=== PATIENT | male | born 1990 | race Caucasian/White ===

== ENCOUNTER 2017-03-19 12:31 | Inpatient (IN) | payer MEDICAID, OTHER ==
[~2017-03-19] VITALS: Ht 175.3 cm; Wt 68.9 kg
[2017-03-19 12:35] VITALS: BP 145/104; PULSE 72; RESP 14; TEMP 98.4; O2SAT 99
[2017-03-19] MEDS ORDERED: OLAN5TAB PO (12:43)
[2017-03-19] MEDS ORDERED: CLON0.5T PO (12:43)
[2017-03-19] MEDS ORDERED: AMLO2.5T PO (12:43)
[2017-03-19] MEDS ORDERED: LURA20TA PO (12:43)
--- NOTE | 2017-03-19 12:55 | PD ---
HPI Chief Complaint: Psychiatric Symptoms Time Seen by Provider: 12:38 Travel History International Travel<30 days: No Contact w/Intl Traveler<30days: No Traveled to known affect area: No History of Present Illness HPI The patient is a 26-year-old male who presents emergency department with his parents for psychiatric evaluation. The patient has a history of anxiety and bipolar affective disorder, saw a counselor at the ages 18. The patient was then seen by psychiatry in [place] 3 weeks ago and referred to [facility]. The patient apparently did not meet inpatient criteria and was discharged home. The patient saw his primary physician who prescribed olanzapine, low to do, and Klonopin. The patient has intermittent thoughts of suicide secondary to increasing anxiety. The patient states he awakened every day and is afraid that he is offended somebody and is nervous and anxious about things she normally is not anxious about. He also notes a history of bipolar affective disorder and feels like that is not being controlled with his current medications. He is requesting psychiatry evaluation. He smokes marijuana intermittently, had a few beers last night, but denies chronic daily excessive alcohol ingestion. PFSH Past Medical History Bipolar Disorder: Yes Anxiety: Yes Cardiovascular Problems: Yes (HTN) Hypertension: Yes Past Surgical History Narrative Surgical Noncontributory Social History Alcohol Use: Yes (beers) Tobacco Use: No Substance Use: Yes ("pot") Allergies-Medications (Allergen,Severity, Reaction): Coded Allergies: No Known Allergies (Unverified , 03/19/17) Reported Meds & Prescriptions Reported Meds & Active Scripts Active Reported Amlodipine (Amlodipine Besylate) 2.5 Mg Tab 2.5 Mg PO DAILY Latuda (Lurasidone) 20 Mg Tab 20 Mg PO DAILY Clonazepam 0.5 Mg Tab 0.5 Mg PO BID PRN Olanzapine 5 Mg Tab 5 Mg PO HS Review of Systems Except as stated in HPI: all other systems reviewed are Neg Cardiovascular: No: Chest Pain or Discomfort Respiratory: No: Shortness of Breath Gastrointestinal: No: Nausea, Vomiting, Abdominal Pain Psychiatric: Positive: Anxiety, Suicidal Ideations, Mood Disorder, No: Homicidal Ideation Physical Exam Narrative GENERAL: Awake, alert, pleasant 26-year-old male who appears his stated age and is in no acute respiratory distress. He does appear mildly anxious. SKIN: Focused skin assessment warm/dry. HEAD: Atraumatic. Normocephalic. EYES: Pupils equal and round. No scleral icterus. No injection or drainage. ENT: No nasal bleeding or discharge. Mucous membranes pink and moist. NECK: Trachea midline. No JVD. CARDIOVASCULAR: Regular rate and rhythm. No murmur appreciated. RESPIRATORY: No accessory muscle use. Clear to auscultation. Breath sounds equal bilaterally. GASTROINTESTINAL: Abdomen soft, non-tender, nondistended. No rebound tenderness. MUSCULOSKELETAL: No obvious deformities. No clubbing. No cyanosis. No edema. NEUROLOGICAL: Awake and alert. No obvious cranial nerve deficits. Motor grossly within normal limits. Normal speech. Nonfocal. Oriented 4. PSYCHIATRIC: Anxious appearing. Insight and judgment appear normal. Data Data Last Documented VS Vital Signs Date Time Temp Pulse Resp B/P Pulse Ox O2 Delivery O2 Flow Rate FiO2 03/19/17 12:35 98.4 72 14 145/104 99 Orders Complete Blood Count With Diff (03/19/17 12:52) Comprehensive Metabolic Panel (03/19/17 12:52) Thyroid Stimulating Hormone (03/19/17 12:52) Psych Screen (03/19/17 12:52) Drug Screen, Random Urine (03/19/17 12:52) Alcohol (Ethanol) (03/19/17 12:52) Diet Regular Basic (03/19/17 Dinner) Clonazepam (Klonopin) (03/19/17 15:00) Labs Laboratory Tests Test 03/19/17 13:00 White Blood Count 7.4 TH/MM3 Red Blood Count 5.40 MIL/MM3 Hemoglobin 15.9 GM/DL Hematocrit 46.7 % Mean Corpuscular Volume 86.5 FL Mean Corpuscular Hemoglobin 29.5 PG Mean Corpuscular Hemoglobin 34.0 % Concent Red Cell Distribution Width 12.7 % Platelet Count 227 TH/MM3 Mean Platelet Volume 8.2 FL Neutrophils (%) (Auto) 68.0 % Lymphocytes (%) (Auto) 18.7 % Monocytes (%) (Auto) 9.0 % Eosinophils (%) (Auto) 3.6 % Basophils (%) (Auto) 0.7 % Neutrophils # (Auto) 5.0 TH/MM3 Lymphocytes # (Auto) 1.4 TH/MM3 Monocytes # (Auto) 0.7 TH/MM3 Eosinophils # (Auto) 0.3 TH/MM3 Basophils # (Auto) 0.0 TH/MM3 CBC Comment DIFF FINAL Differential Comment Sodium Level 137 MEQ/L Potassium Level 4.0 MEQ/L Chloride Level 103 MEQ/L Carbon Dioxide Level 26.6 MEQ/L Anion Gap 7 MEQ/L Blood Urea Nitrogen 10 MG/DL Creatinine 0.73 MG/DL Estimat Glomerular Filtration 132 ML/MIN Rate Random Glucose 92 MG/DL Calcium Level 8.4 MG/DL Total Bilirubin 0.6 MG/DL Aspartate Amino Transf 49 U/L (AST/SGOT) Alanine Aminotransferase 43 U/L (ALT/SGPT) Alkaline Phosphatase 85 U/L Total Protein 7.8 GM/DL Albumin 3.9 GM/DL Thyroid Stimulating Hormone 0.770 uIU/ML 3rd Gen Urine Opiates Screen NEG Urine Barbiturates Screen NEG Urine Amphetamines Screen NEG Urine Benzodiazepines Screen NEG Urine Cocaine Screen NEG Urine Cannabinoids Screen POS Ethyl Alcohol Level 46 MG/DL MDM Medical Decision Making Medical Screen Exam Complete: Yes Emergency Medical Condition: Yes Medical Record Reviewed: Yes Interpretation(s) Laboratory Tests Test 03/19/17 13:00 White Blood Count 7.4 TH/MM3 Red Blood Count 5.40 MIL/MM3 Hemoglobin 15.9 GM/DL Hematocrit 46.7 % Mean Corpuscular Volume 86.5 FL Mean Corpuscular Hemoglobin 29.5 PG Mean Corpuscular Hemoglobin 34.0 % Concent Red Cell Distribution Width 12.7 % Platelet Count 227 TH/MM3 Mean Platelet Volume 8.2 FL Neutrophils (%) (Auto) 68.0 % Lymphocytes (%) (Auto) 18.7 % Monocytes (%) (Auto) 9.0 % Eosinophils (%) (Auto) 3.6 % Basophils (%) (Auto) 0.7 % Neutrophils # (Auto) 5.0 TH/MM3 Lymphocytes # (Auto) 1.4 TH/MM3 Monocytes # (Auto) 0.7 TH/MM3 Eosinophils # (Auto) 0.3 TH/MM3 Basophils # (Auto) 0.0 TH/MM3 CBC Comment DIFF FINAL Differential Comment Sodium Level 137 MEQ/L Potassium Level 4.0 MEQ/L Chloride Level 103 MEQ/L Carbon Dioxide Level 26.6 MEQ/L Anion Gap 7 MEQ/L Blood Urea Nitrogen 10 MG/DL Creatinine 0.73 MG/DL Estimat Glomerular Filtration 132 ML/MIN Rate Random Glucose 92 MG/DL Calcium Level 8.4 MG/DL Total Bilirubin 0.6 MG/DL Aspartate Amino Transf 49 U/L (AST/SGOT) Alanine Aminotransferase 43 U/L (ALT/SGPT) Alkaline Phosphatase 85 U/L Total Protein 7.8 GM/DL Albumin 3.9 GM/DL Thyroid Stimulating Hormone 0.770 uIU/ML 3rd Gen Urine Opiates Screen NEG Urine Barbiturates Screen NEG Urine Amphetamines Screen NEG Urine Benzodiazepines Screen NEG Urine Cocaine Screen NEG Urine Cannabinoids Screen POS Ethyl Alcohol Level 46 MG/DL Differential Diagnosis Differential diagnosis includes anxiety, depressive disorder, bipolar affective disorder, schizoaffective disorder, ADHD, OCD. Narrative Course Labs were drawn and sent. Psychiatric evaluation was ordered. Alcohol was mildly elevated, tox screen positive for cannabinoids, TSH and CMP are unremarkable. Patient is medically clear to be evaluated by psychiatry. Disposition as per psych. Psychiatry has evaluated the patient and will admit the patient to the psychiatric unit. Diagnosis Primary Impression: Bipolar affective disorder Qualified Code: F31.61 - Bipolar disorder, current episode mixed, mild Additional Impression: Anxiety Admitting Information Admitting Physician Requests: Admit Condition: Stable Hitesh Tsai MD Mar 19, 2017 12:55
[2017-03-19 13:11] LABS: BASOPHIL % 0.7 % (0.0-2.0); EOSINOPHIL # 0.3 TH/MM3 (0-0.4); EOSINOPHIL % 3.6 % (0.0-4.0); HEMATOCRIT 46.7 % (39.0-51.0); HEMO FLAGS DIFF FINAL; LYMPH % 18.7 % (9.0-44.0); LYMPHOCYTE # 1.4 TH/MM3 (1.0-4.8); MEAN CELL VOLUME 86.5 FL (80.0-100.0); MEAN CORPUSCULAR HEMOGLOBIN 29.5 PG (27.0-34.0); PLATELET COUNT 227 TH/MM3 (150-450); RED CELL DISTRIBUTION WIDTH 12.7 % (11.6-17.2); WHITE BLOOD COUNT 7.4 TH/MM3 (4.0-11.0)
[2017-03-19 13:22] LABS: AMPHETAMINE, URINE NEG (NEG); BARBITURATES, URINE NEG (NEG); COCAINE, URINE NEG (NEG)
[2017-03-19 13:35] LABS: ALT (GPT) 43 U/L (12-78); ANION GAP 7 MEQ/L (5-15); AST (GOT) 49 U/L (15-37); BICARBONATE 26.6 MEQ/L (21.0-32.0); BLOOD UREA NITROGEN 10 MG/DL (7-18); CHLORIDE 103 MEQ/L (98-107); GLOMERULAR FILTRATION RATE 132 ML/MIN (>89); SODIUM (NA) 137 MEQ/L (136-145)
[2017-03-19 13:44] LABS: ALKALINE PHOSPHATASE 85 U/L (45-117); TOTAL BILIRUBIN ADULT 0.6 MG/DL (0.2-1.0)
[2017-03-19] MEDS ORDERED: clonazePAM 1 MG TAB PO ONE (15:00)
[2017-03-19 15:54] VITALS: BP 127/88; PULSE 70; RESP 18; O2SAT 98
[2017-03-19] MEDS ORDERED: LORazepam 0.5 MG TAB PO PRN (16:00)
[2017-03-19] MEDS ORDERED: MAGNESIUM HYDROXIDE SUSP 30 ML CUP PO PRN (16:00)
[2017-03-19] MEDS ORDERED: ACETAMINOPHEN 325 MG TAB PO PRN (16:00)
[2017-03-19] MEDS ORDERED: ALUMINUM/MAGNESIUM/SIMETH 30 ML CUP PO PRN (16:00)
[2017-03-19] MEDS ORDERED: LORazepam 1 MG TAB PO PRN (16:00)
[2017-03-19] MEDS ORDERED: LORazepam 2 MG/ML VIAL IM PRN ×2 (16:00)
--- NOTE | 2017-03-19 16:15 | HHI.HP ---
Provisional Diagnosis Admission Date [place] I. Bipolar, depressed Certification of Person's Competence To Provide Express and Informed Consent I have personally examined Eddie Cheema , a person being served at [facility] on, Mar 19, 2017 16:01. Express and informed consent means consent voluntarily given in writing, by a competent person, after sufficient explanation and disclosure of the subject matter involved to enable the person to make a knowing and willful decision without any element of force, fraud, deceit, duress, or other form of constraint or coercion. This person is 18 years of age or older, is not now known to be incompetent to consent to treatment with a guardian advocate, and does not have a health care surrogate or proxy currently making medical treatment decisions. I have found this person to be one of the following: [X] Competent to provide express and informed consent, as defined above, for voluntary admission to this facility and is competent to provide express and informed consent for treatment. He/she has the consistent capacity to make well reasoned, willful, and knowing decisions concerning his or her medical or mental health treatment. The person fully and consistently understands the purpose of the admission for examination/placement and is fully capable of personally exercising all rights assured [place] Incompetent to provide express and informed consent to voluntary admission, and this is incompetent to provide express and informed consent to treatment. The person must be transferred to involuntary status and a petition for a guardian advocate filed with the Circuit Court. [] Refusing to provide express and informed consent to voluntary admission but is competent to provide express and informed consent for treatment. The person must be discharged or transferred to involuntary status. Form shall be completed within 24 hours of a person's arrival at the receiving facility and filed in the clinical record of each person: 1. Admitted on a voluntary basis 2. Permitted to provide express and informed consent to his/her own treatment 3. Allowed to transfer from involuntary to voluntary status 4. Prior to permitting a person to consent to his or her own treatment after having been previously found incompetent to consent to treatment. History of Present Illness Capacity: Has Capacity HPI 26-year-old male being admitted to the psychiatric [facility] for the first time due to symptoms of mood disorder, anxiety and suicidal ideation. Patient, mother and stepfather were at the bedside and all of them interviewed. The patient has approximately a 6 to a month history of increasing symptoms of depression and anxiety. At this point the patient describes depressed mood, anhedonia, social withdrawal, feelings of guilt, feelings of hopelessness and helplessness , suicidal ideation and great anxiety. He is not sleeping at night. He is unable to concentrate he feels he has offended people who he knows and he has somehow been disappointing in everything he does. He does not have an exact plan to kill himself at this time he has been prescribed medications and states he could overdose. He has been drinking alcohol and smoking marijuana but both he and his mother claim he does this to self medicate his anxiety. He has been seen by a private practitioner on [place] and at the [facility]. He has been prescribed Latuda but has not been taking it with meals. He has been prescribed Klonopin and he has been prescribed olanzapine. At this point, he is unable to contract for safety. Both the patient and his mother wanted him admitted. Review of Systems Except as stated in HPI: all other systems reviewed are Neg Past Psych History Psychological trauma history Although he has been seen twice and, he has had no consistent treatment. Violence risk - others (6 mos) Minimal Violence risk - self (6 mos) Moderate to severe Substance Abuse History Drugs/Alcohol past 12 months Smoking marijuana and drinking alcohol daily for the last several months Past Family Social History Coded Allergies: No Known Allergies (Unverified , 03/19/17) Reported Medications Amlodipine 2.5 Mg Tab2.5 Mg PO DAILY #30 TAB Ref 0 03/19/17 Lurasidone (Latuda)20 Mg Tab20 Mg PO DAILY #30 TAB Ref 0 03/19/17 Clonazepam 0.5 Mg Tab0.5 Mg PO BID PRN #60 TAB Ref 0 03/19/17 Olanzapine 5 Mg Tab5 Mg PO HS #30 TAB Ref 0 03/19/17 Current Medications Medications (Trade) Dose Ordered Sig/Prisca Route Start Time Stop Time Status Last Admin (Ativan) 1 mg Q6H PRN PO 03/19/17 16:00 UNV (Ativan Inj) 1 mg Q6H PRN IM 03/19/17 16:00 UNV (Ativan) 0.5 mg Q12H PRN PO 03/19/17 16:00 UNV (Ativan Inj) 0.5 mg Q12H PRN IM 03/19/17 16:00 UNV (Tylenol) 650 mg Q4H PRN PO 03/19/17 16:00 UNV (Milk Of Magnesia Liq) 30 ml DAILY PRN PO 03/19/17 16:00 UNV (Mag-Al Plus Susp Liq) 30 ml Q6H PRN PO 03/19/17 16:00 UNV (Habitrol 21 Mg Patch.24 Hr) 1 patch DAILY T-DERMAL 03/20/17 09:00 UNV (Desyrel) 50 mg HS PRN PO 03/19/17 16:00 UNV Family History Positive for mood and anxiety disorders. Social History Currently the patient is employed. However his boss is concerned about his emotional well being and safety. Patient does admit to using marijuana and alcohol to deal with his anxiety. Patient's Strengths (min. 2) Verbal Physical Exam GENERAL: SKIN: Warm and dry. HEAD: Normocephalic. EYES: No scleral icterus. No injection or drainage. NECK: Supple, trachea midline. No JVD or lymphadenopathy. CARDIOVASCULAR: Regular rate and rhythm without murmurs, gallops, or rubs. RESPIRATORY: Breath sounds equal bilaterally. No accessory muscle use. GASTROINTESTINAL: Abdomen soft, non-tender, nondistended. MUSCULOSKELETAL: No cyanosis, or edema. BACK: Nontender without obvious deformity. No CVA tenderness. Vital Signs Vital Signs Date Time Temp Pulse Resp B/P Pulse Ox O2 Delivery O2 Flow Rate FiO2 03/19/17 15:54 70 18 127/88 98 03/19/17 12:35 98.4 Mental Status Examination Speech: Stuttering Orientation: x3 Memory: Unremarkable Thought Process: Organized, Other Thought Content: Ideas of Reference Hallucination Type: None Attention and Concentration: Easily Distracted Suicidal Ideation: Yes Previous Suicide Attempts: No Homicidal Ideation: No Previous Homicide Attempts: No Insight: Fair Judgment: Unrealistic Affect: Anxious, Sad Affect if Inappropriate: Blunt Mood: Sad, Anxious Motor Activity: Normal gait Assessment & Plan Problem List: (1) Bipolar 1 disorder, depressed, severe ICD Code: F31.4 Assessment & Plan Estimated LOS: days this is a 26-year-old male who appears to be having a severe depressive episode with multiple symptoms of depression, extreme anxiety , ideas of reference and suicidal thinking. Even though he has received a diagnosis of bipolar depression in the last 2 weeks, this is his first evaluation and proper treatment, thus necessitating an initial workup. The patient will receive a CBC to determine the likelihood of any infective process. We will obtain a comprehensive metabolic panel to determine any abnormalities in his organs which might be causing this mood change. He will also receive a TSH to make sure his thyroid is not hypoactive and causing depression. He will receive an EKG to determine his cardiac conduction prior to initiating antipsychotic mood stabilizing medicine. We will check his kidney function for a baseline measurement prior to beginning lithium. We will order a head scan to make sure there is no tumor which could be creating this event. This physician spoke with the patient's nurse regarding his current emotional instability and behavior. Finally, this physician will request the embedded case manager to obtain more history from the family regarding both the patient' s behavior and any family history of bipolar disorder or other mental illnesses. Carlos Aguilera MD Mar 19, 2017 16:15
[2017-03-19] MEDS ORDERED: LORazepam 2 MG/ML VIAL ONE (16:33)
[2017-03-19] MEDS ORDERED: LORazepam 2 MG/ML VIAL IM ONE (17:00)
[2017-03-19] MEDS: LITHIUM CARBONATE 300 MG SLOW RELEASE TAB PO SCH (18:06)
[2017-03-19 18:20] VITALS: BP 159/93; PULSE 102; RESP 20; TEMP 97.7; O2SAT 98
[2017-03-19 19:16] VITALS: BP 159/93; PULSE 103; RESP 20; TEMP 97.3; O2SAT 98
[2017-03-19] MEDS: REMOVE OLD NICODERM (NICOTINE) PATCH T-DERMAL SCH (21:00)
[2017-03-19] MEDS: clonazePAM 1 MG TAB PO SCH (21:25)
[2017-03-19] MEDS: traZODone HCL 50 MG TAB PO PRN (21:25)
[2017-03-20 06:16] VITALS: BP 126/78; PULSE 78; RESP 18; TEMP 97.9; O2SAT 99
[2017-03-20] MEDS: LITHIUM CARBONATE 300 MG SLOW RELEASE TAB PO SCH ×2 (08:41→18:06)
[2017-03-20] MEDS: clonazePAM 1 MG TAB PO SCH ×2 (08:44→20:10)
[2017-03-20] MEDS: NICOTINE 21 MG/24 HR PATCH T-DERMAL SCH (08:48)
[2017-03-20] MEDS ORDERED: FLUoxetine HCL 10 MG CAP PO SCH (09:00)
[2017-03-20 09:28] LABS: AUTOMATED NEUTROPHIL # 3.7 TH/MM3 (1.8-7.7); BASOPHIL # 0.1 TH/MM3 (0-0.2); BASOPHIL % 0.9 % (0.0-2.0); EOSINOPHIL # 0.6 TH/MM3 (0-0.4); EOSINOPHIL % 9.3 % (0.0-4.0); HEMATOCRIT 47.2 % (39.0-51.0); HEMO FLAGS DIFF FINAL; LYMPH % 23.2 % (9.0-44.0); LYMPHOCYTE # 1.5 TH/MM3 (1.0-4.8); MEAN CELL VOLUME 87.1 FL (80.0-100.0); MEAN CORPUSCULAR HGB CONC 34.5 % (32.0-36.0); MONO % 9.4 % (0.0-8.0); NEUT % 57.2 % (16.0-70.0); PLATELET COUNT 217 TH/MM3 (150-450); RED BLOOD COUNT 5.43 MIL/MM3 (4.50-5.90); RED CELL DISTRIBUTION WIDTH 12.5 % (11.6-17.2); WHITE BLOOD COUNT 6.5 TH/MM3 (4.0-11.0)
[2017-03-20 10:03] LABS: ANION GAP 8 MEQ/L (5-15); AST (GOT) 49 U/L (15-37); BICARBONATE 27.1 MEQ/L (21.0-32.0); BLOOD UREA NITROGEN 12 MG/DL (7-18); CHLORIDE 102 MEQ/L (98-107); GLOMERULAR FILTRATION RATE 102 ML/MIN (>89); POTASSIUM 3.8 MEQ/L (3.5-5.1); SODIUM (NA) 137 MEQ/L (136-145)
[2017-03-20 10:32] LABS: ALKALINE PHOSPHATASE 80 U/L (45-117); ALT (GPT) 45 U/L (12-78); HDL CHOLESTEROL 90.1 MG/DL (40.0-60.0); LDL CHOLESTEROL 69 MG/DL (0-99); TOTAL BILIRUBIN ADULT 1.1 MG/DL (0.2-1.0)
--- NOTE | 2017-03-20 13:01 | EKG ---
Date Performed: 03/20/2017 Time Performed: 08:56:08 PTAGE: 26 years EKG: Sinus rhythm POSSIBLE RIGHT VENTRICULAR CONDUCTION DELAY BORDERLINE ECG NO PREVIOUS TRACING DOCTOR: Alvaro Frazier Interpretating Date/Time 03/20/2017 12:59:05
--- NOTE | 2017-03-20 15:14 | HHI.PYPN ---
Subjective Remarks Patient was seen and case discussed with nursing. During our interview patient is having a panic attack crying and despairing because he feels uncomfortable in this unit, "claustrophobic" and has to continue to stay here through the weekend. He has disjointed speech, almost a stutter. Thought process is tangential and mildly loose. Patient says he was not drinking before admission but there is an alcohol level of 46. There are no visual hallucinations, or nausea or vomiting but couple vital signs readings were elevated. He denies suicidal ideation but says he does feel anxious Objective Alert: Yes [place]: Place, Date Mood: Anxious Affect: Labile Memory Intact: Immediate (not tested) Hallucinations: Auditory (denies) Delusions: No Delusion Type: Other (none elicited) Suicidal: Ideation (denies) Homicidal: Ideation (denies) Insight/Judgment Poor Labs Test 03/20/17 09:12 White Blood Count 6.5 TH/MM3 Red Blood Count 5.43 MIL/MM3 Hemoglobin 16.3 GM/DL Hematocrit 47.2 % Mean Corpuscular Volume 87.1 FL Mean Corpuscular Hemoglobin 30.0 PG Mean Corpuscular Hemoglobin 34.5 % Concent Red Cell Distribution Width 12.5 % Platelet Count 217 TH/MM3 Mean Platelet Volume 8.5 FL Neutrophils (%) (Auto) 57.2 % Lymphocytes (%) (Auto) 23.2 % Monocytes (%) (Auto) 9.4 % Eosinophils (%) (Auto) 9.3 % Basophils (%) (Auto) 0.9 % Neutrophils # (Auto) 3.7 TH/MM3 Lymphocytes # (Auto) 1.5 TH/MM3 Monocytes # (Auto) 0.6 TH/MM3 Eosinophils # (Auto) 0.6 TH/MM3 Basophils # (Auto) 0.1 TH/MM3 CBC Comment DIFF FINAL Differential Comment Sodium Level 137 MEQ/L Potassium Level 3.8 MEQ/L Chloride Level 102 MEQ/L Carbon Dioxide Level 27.1 MEQ/L Anion Gap 8 MEQ/L Blood Urea Nitrogen 12 MG/DL Creatinine 0.91 MG/DL Estimat Glomerular Filtration 102 ML/MIN Rate Random Glucose 117 MG/DL Calcium Level 8.7 MG/DL Total Bilirubin 1.1 MG/DL Aspartate Amino Transf 49 U/L (AST/SGOT) Alanine Aminotransferase 45 U/L (ALT/SGPT) Alkaline Phosphatase 80 U/L Total Protein 7.6 GM/DL Albumin 3.8 GM/DL Triglycerides Level 99 MG/DL Cholesterol Level 179 MG/DL LDL Cholesterol 69 MG/DL HDL Cholesterol 90.1 MG/DL Cholesterol/HDL Ratio 1.98 RATIO Vitamin B12 Level 735 PG/ML 25-Hydroxy Vitamin D Total 25.2 ng/ML Vitals/IOs Vital Signs Date Time Temp Pulse Resp B/P Pulse Ox O2 Delivery O2 Flow Rate FiO2 03/20/17 06:16 97.9 78 18 126/78 99 Assessment & Plan Problem List: (1) Bipolar 1 disorder, depressed, severe ICD Code: F31.4 Assessment & Plan DC Prozac given patient is a bipolar diagnosis. Start ciwa protocol. 1 mg of Ativan administered now for acute anxiety, obtain lithium level next week, vitals every 6 hours Justification for Cont. Inpt. Patient will decompensate in a less restrictive setting Fernando Shah DO Mar 20, 2017 15:14
[2017-03-20] MEDS ORDERED: FLUMAZENIL 0.5 MG/5 ML VIAL IV PUSH PRN (16:15)
[2017-03-20] MEDS ORDERED: LORazepam 1 MG TAB PO PRN (16:15)
[2017-03-20] MEDS ORDERED: LORazepam 2 MG/ML VIAL IV PUSH PRN ×4 (16:15)
[2017-03-20] MEDS ORDERED: HALOPERIDOL LACTATE 5 MG/ML AMP IM PRN (16:15)
[2017-03-20] MEDS ORDERED: LORazepam 2 MG TAB PO PRN (16:15)
[2017-03-20 18:00] VITALS: BP 147/78; PULSE 85; RESP 18; TEMP 97.8; O2SAT 99
[2017-03-20] MEDS: REMOVE OLD NICODERM (NICOTINE) PATCH T-DERMAL SCH (20:10)
[2017-03-20] MEDS: traZODone HCL 50 MG TAB PO PRN (21:10)
[2017-03-21 01:08] VITALS: BP 118/71; PULSE 72; RESP 16; TEMP 97.6; O2SAT 97
[2017-03-21 05:45] VITALS: BP 115/67; PULSE 77; RESP 18; TEMP 98.1; O2SAT 98
[2017-03-21] MEDS: clonazePAM 1 MG TAB PO SCH ×2 (08:50→21:05)
[2017-03-21] MEDS: NICOTINE 21 MG/24 HR PATCH T-DERMAL SCH (08:51)
[2017-03-21] MEDS: LITHIUM CARBONATE 300 MG SLOW RELEASE TAB PO SCH ×2 (08:51→17:54)
[2017-03-21 09:59] LABS: HEMOGLOBIN A1b 1.2 %; HEMOGLOBIN Ao 86.9 %; HEMOGLOBIN F 0.2 %; HEMOGLOBIN LA1C 2.1 %; HEMOGLOBIN P3 3.4 %
--- NOTE | 2017-03-21 14:05 | HHI.PYPN ---
Subjective Remarks Patient was seen and case discussed with nursing. Patient continues to be anxious but less so compared to yesterday. CIWA is 0 blood pressures have been stable so we will discontinue it. Alert and oriented 4. No visual hallucinations. No nausea or vomiting. Remains focused on discharge. Denies suicidal ideation thoughts intent or plan Objective Alert: Yes [place]: Person, Place, Date Mood: Calm Affect: Other (anxious) Memory Intact: Immediate (not tested) Hallucinations: Auditory (denies) Delusions: No Delusion Type: Other (none elicited) Suicidal: Ideation (denies) Homicidal: Ideation (denies) Insight/Judgment Poor Vitals/IOs Vital Signs Date Time Temp Pulse Resp B/P Pulse Ox O2 Delivery O2 Flow Rate FiO2 03/21/17 05:45 98.1 77 18 115/67 98 Assessment & Plan Problem List: (1) Bipolar 1 disorder, depressed, severe ICD Code: F31.4 Assessment & Plan DC CIWA protocol Justification for Cont. Inpt. Patient will decompensate in a less restrictive setting Fernando Shah DO Mar 21, 2017 14:05
[2017-03-21 15:35] VITALS: BP 147/71; PULSE 95; RESP 18; TEMP 98; O2SAT 100
[2017-03-21] MEDS: REMOVE OLD NICODERM (NICOTINE) PATCH T-DERMAL SCH (21:00)
[2017-03-21] MEDS: traZODone HCL 50 MG TAB PO PRN (21:05)
[2017-03-21 22:00] VITALS: BP 122/74; PULSE 70; RESP 16
[2017-03-22 06:21] VITALS: BP 133/70; PULSE 63; RESP 18; TEMP 97.3; O2SAT 99
[2017-03-22] MEDS: clonazePAM 1 MG TAB PO SCH (08:50)
[2017-03-22] MEDS: LITHIUM CARBONATE 300 MG SLOW RELEASE TAB PO SCH (08:50)
[2017-03-22] MEDS: NICOTINE 21 MG/24 HR PATCH T-DERMAL SCH (08:51)
--- NOTE | 2017-03-22 11:58 | PD.TTN ---
Present for Treatment Team Treatment Team Staff: Provider (Dr. Hernandez), Nurse (Hipolito ), Psych Therapist (Taylor), Occupational Therapist (Coleman) Patient Problems 1. Discharge planning 2. Medication compliance 3. Knowledge deficit 4. Lack of coping skills Progress Toward Goals Provider Input: Patient has been compliant and is new admission. has feeling for depression and but is currently denying SI Nurse Input: Patient is compliant and is discharge focus. patient is cooperative with medications. Psych Therapist Input: Patient is cooperative and calm on the unit. Taylor Hogan [facility] Mar 22, 2017 11:58
[2017-03-22] MEDS ORDERED: LITH300T PO (16:09)
[2017-03-22] MEDS ORDERED: CLON1 PO (16:09)
--- NOTE | 2017-03-22 16:14 | HHI.DS ---
Psychiatry Discharge Summary Inpatient Psychiatric care?: Yes Advance Directive: No Reason Not Provided: AGITATED Mental Health AdvanceDirective: No Health Care Proxy: No Admission Admission Date Mar 19, 2017 at 15:56 Admission Diagnosis: (1) Bipolar 1 disorder, depressed, severe ICD Code: F31.4 Brief History 26-year-old male being admitted to the [facility] the [facility] due to symptoms of mood disorder, anxiety and suicidal ideation. Patient, mother and stepfather were at the bedside and all of them interviewed. The patient has approximately a 6 to a month history of increasing symptoms of depression and anxiety. At this point the patient describes depressed mood, anhedonia, social withdrawal, feelings of guilt, feelings of hopelessness and helplessness , suicidal ideation and great anxiety. He is not sleeping at night. He is unable to concentrate he feels he has offended people who he knows and he has somehow been disappointing in everything he does. He does not have an exact plan to kill himself at this time he has been prescribed medications and states he could overdose. He has been drinking alcohol and smoking marijuana but both he and his mother claim he does this to self medicate his anxiety. He has been seen by a private practitioner on [place] and at the [facility]. He has been prescribed Latuda but has not been taking it with meals. He has been prescribed Klonopin and he has been prescribed olanzapine. At this point, he is unable to contract for safety. Both the patient and his mother wanted him admitted. Tobacco Use In Past 30 Days: No Tobacco Past 30 Days Alcohol Use: 4 or More Times Per Week Hospital Course Patient show compliance with medication from admission, now denies suicidality homicidality. Acknowledges some type of rupture hallucinations that is been since childhood. Though it is markedly decreased now that is not intrusive not threatening. He states this is similar to his chronic vague voices. And also talked the patient's sister and stepfather who are here they feel is doing much better. They do wish him to be discharged home with family can follow-up with him as an outpatient. Additionally feel patient no longer meets Maldonado criteria I will lift the Maldonado act allow him to be discharged to his family with Rx 1 month follow-up [facility] Results Blood Pressure 133 / 70 Vital Signs Date Time Temp Pulse Resp B/P Pulse Ox O2 Delivery O2 Flow Rate FiO2 03/22/17 06:21 97.3 63 18 133/70 99 Laboratory Tests Test 03/20/17 09:12 Monocytes (%) (Auto) 9.4 % (0.0-8.0) Eosinophils (%) (Auto) 9.3 % (0.0-4.0) Eosinophils # (Auto) 0.6 TH/MM3 (0-0.4) Random Glucose 117 MG/DL (74-106) Total Bilirubin 1.1 MG/DL (0.2-1.0) Aspartate Amino Transf 49 U/L (15-37) (AST/SGOT) HDL Cholesterol 90.1 MG/DL (40.0-60.0) 25-Hydroxy Vitamin D Total 25.2 ng/ML (30-100) Laboratory Results Test 03/20/17 09:12 Hemoglobin A1c 4.9 % (4.3-6.0) Triglycerides Level 99 MG/DL (42-150) Cholesterol Level 179 MG/DL (120-200) LDL Cholesterol 69 MG/DL (0-99) HDL Cholesterol 90.1 MG/DL (40.0-60.0) Summary of Procedures None done Pending results at discharge: No Medications # of Antipsychotic meds at D/C: 0 Approp Antipsych med options 1 - Minimum of three failed multiple trials of monotherapy. 2 - Documented plan to taper to monotherapy due to previous use of multiple meds OR cross-taper in progress at D/C. 3 - Documentation of augmentation of Clozapine. 4 - Justification other than those listed in allowable values 1-3, document here : Discharge Discharge Date: Mar 22, 2017 Discharge Diagnosis: (1) Bipolar 1 disorder, depressed, severe Diagnosis: Principal ICD Code: F31.4 Mental Status Exam at Disch Alert oriented heavyset white male is calm cooperative with me he is normal active. His mood is euthymic to somewhat restricted, affect shows decreased range intensity. Speech rate and rhythm is slow it is mildly tangential. There are no visual hallucinations that are the chronic controllable auditory hallucinations. No delusions. Insight and judgment poor to fair cognition appears grossly intact Pt Condition on Discharge: Stable Discharge Disposition: Discharge Home Discharge Instructions Diet Instructions: As Tolerated, No Restrictions Activities you can perform: Regular-No Restrictions Scheduled Appointment: Reid Jain Appointment Date: Mar 23, 2017 Appointment Time: 9:00 Discharge Time > 30 minutes Discharge/Advance Care Plan Health Problems: (1) Bipolar 1 disorder, depressed, severe Goals to promote your health * To prevent worsening of your condition and complications * To maintain your health at the optimal level Directions to meet your goals Take your medications as prescribed Follow your dietary instruction Follow activity as directed Keep your appointments as scheduled Take your immunizations and boosters as scheduled If your symptoms worsen call your PCP, if no PCP go to Urgent Care Center or Emergency Room For 26/04 questions related to your inpatient stay or results of tests pending at discharge, please contact Dr. Ronaldo Hernandez at Smoking is Dangerous to Your Health. Avoid second hand smoking Ronaldo Hernandez MD Mar 22, 2017 16:14
== END 2017-03-22 16:45 | disposition home or self-care (01) | DRG 885 ==
LOC: NEPD 12:31 → UNDOADMIN 15:56 → NEDA 15:56 → UNDOADMIN 16:02 → H260 16:21
PROVIDERS: ADMIT Psychiatry & Neurology Psychiatry; ATTEND Psychiatry & Neurology Psychiatry
DX: F31.4 Bipolar disorder, current episode depressed, severe, without psychotic features (principal); I10 Essential (primary) hypertension; F12.90 Cannabis use, unspecified, uncomplicated; Z72.89 Other problems related to lifestyle; Y90.2 Blood alcohol level of 40-59 mg/100 ml
CPT/HCPCS: 80053; 80061; 80307; 82306; 82607; 83036; 84443; 85025; 93005; J2060